=== PATIENT | female | born 2000 | race Caucasian/White ===

== ENCOUNTER 2023-10-02 16:15 | Day surgery (SDC) | payer BC ==
[2023-10-02 16:48] VITALS: BMI 25.0
[2023-10-02] MEDS ORDERED: hydrALAZINE 20 MG/ML VIAL SLOW IVP PRN (17:27)
[2023-10-02 18:53] LABS: Fetal Membranes Rupture No Membranes Rupture (No Rupture)
== END 2023-10-02 19:35 | disposition home or self-care (01) ==
LOC: CSHLD/OP 16:15
PROVIDERS: ATTEND Obstetrics & Gynecology
DX: O99.891 Other specified diseases and conditions complicating pregnancy (principal); O36.8130 Decreased fetal movements, third trimester, not applicable or unspecified; R10.9 Unspecified abdominal pain; Z79.899 Other long term (current) drug therapy; Z3A.39 39 weeks gestation of pregnancy
CPT/HCPCS: 76819; 84112; 99283